=== PATIENT | male | born 1970 | race Caucasian/White ===

== ENCOUNTER → 2018-11-23 | Outpatient (CLI) | payer BC ==
[~2018-11-23] MED LIST: MULTI VITAMINS1 TAB PO; NORCO 325 MG-51 TAB PO
== END ==
LOC: COL.RAD 07:30
DX: C18.2 Malignant neoplasm of ascending colon (principal); C77.2 Secondary and unspecified malignant neoplasm of intra-abdominal lymph nodes; R91.1 Solitary pulmonary nodule
CPT/HCPCS: Q9967

== ENCOUNTER 2018-11-24 06:31 | Day surgery (SDC) | payer BC ==
[~2018-11-24] VITALS: Ht 177.8 cm; Wt 93.6 kg
[~2018-11-24 06:31] MED LIST changes: -NORCO 325 MG-51 TAB PO
[2018-11-24 07:36] VITALS: BP 136/85; PULSE 109; TEMP 97.3
[2018-11-24 09:25] VITALS: BP 126/78; PULSE 97; TEMP 97.8
[2018-11-24] MEDS ORDERED: NORCO 325 MG-51 TAB PO (09:25)
[2018-11-24 09:40] VITALS: BP 132/85; PULSE 98; TEMP 97.8
--- NOTE | 2018-11-24 09:45 | NUR ---
PATIENT ARRIVES FROM OR TO BAY 1 VIA CART. POST OP VS STARTED. ICE WATER GIVEN REQUESTED. SEMIFOWLERS IN BED. FAMILY AT BEDSIDE. DENIES PAIN. DRESSING ON UPPER LEFT CHEST CLEAN, DRY AND INTACT. CALL LIGHT IS WITHIN REACH, WILL CONTINUE TO MONITOR.
--- NOTE | 2018-11-24 09:53 | NUR ---
PATIENT REMAINS STABLE. ALERT AND ORIENTED. NOW REQUESTING PUDDING AND SITTING UP. CALL LIGHT IN REACH AND FAMILY AT BEDSIDE. WILL CONTINUE TO MONITOR.
[2018-11-24 09:55] VITALS: BP 131/85; PULSE 94
[2018-11-24 10:10] VITALS: BP 128/73; PULSE 73; TEMP 97.8
--- NOTE | 2018-11-24 10:41 | NUR ---
PATIENT DISCHARGED TO HOME WITH FAMILY. AMBULATED TO PERSONAL VEHICHLE WITHOUT DIFFICULTY AND STEADY GAIT. DISCHARGE INSTRUCTIONS GIVEN TO, VERBALIZED UNDERSTANDING. PRESCRIPTION GIVEN.
== END 2018-11-24 11:00 | disposition home or self-care (01) ==
LOC: SDCO 06:31
DX: C18.0 Malignant neoplasm of cecum (principal); C78.7 Secondary malignant neoplasm of liver and intrahepatic bile duct; I10 Essential (primary) hypertension; E78.5 Hyperlipidemia, unspecified; Z80.0 Family history of malignant neoplasm of digestive organs; Z82.49 Family history of ischemic heart disease and other diseases of the circulatory system
CPT/HCPCS: C1788; J0690; J1100; J1644; J1885; J2405; J2704; J3010; J7120